=== PATIENT | male | born 1985 | race Caucasian/White ===

== ENCOUNTER 2021-04-14 13:14 | Emergency (ER) | payer SELFPAY ==
[2021-04-14 14:27] LABS: Absolute Lymphocytes (CBC) 1.4 K/uL (0.7-4.9); Basophils % 0.9 % (0-1.3); Hematocrit 35.1 % (39.6-49.0); Lymphocytes % 20.2 % (15.3-44.8); MPV 7.1 fL (7.6-11.3); RBC Red Blood Cell Count 4.08 M/uL (4.33-5.43)
[2021-04-14 14:44] LABS: ALT/SGPT 37 U/L (12-78); AST/SGOT 28 U/L (15-37); Albumin 3.1 g/dL (3.4-5.0); Alkaline Phosphatase 92 U/L (45-117); BUN Blood Urea Nitrogen 7 mg/dL (7-18); Bicarbonate 26 mmol/L (21-32); Bilirubin Direct < 0.1 mg/dL (0-0.2); Bilirubin Total 0.2 mg/dL (0.2-1.0); Glucose Level 106 mg/dL (74-106); Lipase 75 U/L (73-393); Potassium 3.5 mmol/L (3.5-5.1); Protein, Total 6.1 g/dL (6.4-8.2); Sodium Level 141 mmol/L (136-145)
[2021-04-14] MEDS ORDERED: ONDANSETRON 4 MG/2 ML VIAL ONE (14:46)
[2021-04-14] MEDS ORDERED: NA CHLORIDE 0.9% 1,000 ML ONE (14:46)
--- NOTE | 2021-04-14 15:12 | RAD REPORT ---
EXAM DESCRIPTION: CTAbdomen Pelvis W Contrast - 04/14/2021 2:58 pm CLINICAL HISTORY: Abdominal pain. ABD PAIN COMPARISON: No comparisons TECHNIQUE: Biphasic CT imaging of the abdomen and pelvis was performed with 100 ml non-ionic IV cont rast. All CT scans are performed using dose optimization technique as appropriate and may include automated exposure control or mA/KV adjustment according to patient size. FINDINGS: The lung bases are clear. The liver, spleen, pancreas, adrenal glands and kidneys are within normal limits. No bowel obstruction, free air, free fluid or abscess. There is thickening of the small intestine loo ps throughout the abdomen. Fluid-filled small bowel loops are present. Moderate stool is present thro ughout the colon. The appendix is normal. No evidence of significant lymphadenopathy. No suspicious bony findings. IMPRESSION: Diffuse wall thickening and fluid-filled small intestine is present which probably repre sents a nonspecific small bowel enteritis.
--- NOTE | 2021-04-14 15:44 | EDPHYS ---
Physician Documentation [facility] Name: Ebenezer Gordon Age: 35 yrs Sex: Male : 1985 Arrival Date: 04/14/2021 Time: 13:16 Bed 20 Private MD: DARSHANA Physician Jason Hernandez HPI: 04/14 15:40 This 35 yrs old Male presents to ER via Ambulatory with complaints of kb Vomiting/Diarrhea. 15:40 The patient presents to the emergency department with nausea, vomiting, diarrhea, kb abdominal pain. Onset: The symptoms/episode began/occurred 1 month(s) ago. Possible causes: unknown. The symptoms are aggravated by food , The symptoms are alleviated by nothing. Associated signs and symptoms: Pertinent positives: abdominal pain, diarrhea, nausea, vomiting, Pertinent negatives: fever. Severity of symptoms: At their worst the symptoms were mild moderate in the emergency department the symptoms are unchanged. The patient has not experienced similar symptoms in the past. The patient has not recently seen a physician. Pt states he has had diarrhea for about a month. Reports nausea and bloating after eating with intermittent upper abd pain. states he was diagnosed with H pylori and completed the course of antibiotics, but is still having the symptoms. . Historical: - Allergies: 13:26 No Known Allergies; ap3 - Home Meds: 13:26 Vraylar 1.5 mg oral cap [Active]; Gas Relief (simethicone) 125 mg oral cap [Active]; ap3 Pepcid AC 20 mg Oral tab [Active]; Acid Cigarette And Filter Chief Inspector (famotidine) 20 mg oral tab [Active]; ondansetron HCl 4 mg Oral tab [Active]; - PMHx: 13:26 Hypertensive disorder; H. Pylori; Anxiety; Depressive disorder; ptsd; Bipolar disorder; ap3 - Immunization history:: Client reports having NOT received the Covid vaccine. - Social history:: Smoking status: Patient reports the use of cigarette tobacco products, smokes one-half pack cigarettes per day, patient has been clean for 3 weeks. Patient was using Methamphetamine's, and is now at [facility]. . ROS: 15:39 Constitutional: Negative for fever, chills, and weight loss. kb 15:39 Abdomen/GI: Positive for abdominal pain, nausea, vomiting, and diarrhea. 15:39 All other systems are negative. Exam: 15:39 Constitutional: This is a well developed, well nourished patient who is awake, alert, kb and in no acute distress. Head/Face: Normocephalic, atraumatic. ENT: Moist Mucous membranes Respiratory: Respirations even and unlabored. No increased work of breathing, no retractions or nasal flaring. Abdomen/GI: Soft, non-tender. No distention Skin: Warm, dry with normal turgor. Normal color. MS/ Extremity: Pulses equal, no cyanosis. Neurovascular intact. Full, normal range of motion. Neuro: Awake and alert, GCS 15, oriented to person, place, time, and situation. Moves all extremities. Normal gait. Psych: Awake, alert, with orientation to person, place and time. Behavior, mood, and affect are within normal limits. Vital Signs: 13:22 BP 126 / 106; Pulse 91; Resp 23; Temp 98.7(TE); Pulse Ox 100% on R/A; Weight 63.5 kg; ap3 Height 5 ft. 9 in. (175.26 cm); 13:30 BP 138 / 81; ap3 16:49 BP 140 / 101; Pulse 68; Resp 16; Pulse Ox 98% ; tc5 13:22 Body Mass Index 20.67 (63.50 kg, 175.26 cm) ap3 MDM: 13:40 Patient medically screened. kb 15:39 Data reviewed: vital signs, nurses notes. Data interpreted: Pulse oximetry: on room air kb is 100 %. Interpretation: normal. Counseling: I had a detailed discussion with the patient and/or guardian regarding: the historical points, exam findings, and any diagnostic results supporting the discharge/admit diagnosis, lab results, radiology results, the need for outpatient follow up, a family practitioner, to return to the emergency department if symptoms worsen or persist or if there are any questions or concerns that arise at home. 04/14 13:40 Order name: Basic Metabolic Panel; Complete Time: 14:58 kb 04/14 13:40 Order name: CBC with Diff; Complete Time: 14:29 kb 04/14 13:40 Order name: Hepatic Function; Complete Time: 14:58 kb 04/14 13:40 Order name: Lipase; Complete Time: 14:58 kb 04/14 14:05 Order name: Stool Culture kb 04/14 13:40 Order name: IV Saline Lock; Complete Time: 14:17 kb 04/14 13:40 Order name: Labs collected and sent; Complete Time: 14:17 kb 04/14 14:30 Order name: CT Abd/Pelvis - IV Contrast Only; Complete Time: 15:25 kb Administered Medications: 14:30 Drug: Zofran (Ondansetron) 4 mg Route: IVP; Site: right antecubital; tc5 16:48 Follow up: Response: No adverse reaction tc5 14:31 Drug: NS 0.9% 1000 ml Route: IV; Rate: 1000 ml; Site: right antecubital; tc5 16:48 Follow up: IV Status: Completed infusion; IV Intake: 1000ml tc5 16:36 Drug: Bentyl (dicyclomine) 20 mg Route: PO; tc5 16:48 Follow up: Response: No adverse reaction tc5 16:36 Drug: Cipro (ciprofloxacin) 500 mg Route: PO; tc5 16:48 Follow up: Response: No adverse reaction tc5 16:36 Drug: Flagyl (metroNIDAZOLE) 500 mg Route: PO; tc5 16:47 Follow up: Response: No adverse reaction tc5 Disposition: 04/15 13:02 Co-signature as Attending Physician, Jason Hernandez MD I agree with the assessment and bridgette plan of care. Disposition Summary: 04/14/21 15:43 Discharge Ordered Location: Home Condition: Stable kb Diagnosis - Small Bowel Enteritis kb Followup: kb - With: Emergency Department - When: As needed - Reason: Worsening of condition Followup: kb - With: Private Physician - When: 2 - 3 days - Reason: Recheck today's complaints, Continuance of care, Re-evaluation by your physician Discharge Instructions: - Discharge Summary Sheet kb - Viral Gastroenteritis, Adult, [id number] kb Forms: - Medication Reconciliation Form kb - Thank You Letter kb - Antibiotic Education kb - Prescription Opioid Use kb Prescriptions: - Cipro 500 mg Oral Tablet - take 1 tablet by ORAL route every 12 hours for 10 days; 20 tablet; Refills: 0, kb Product Selection Permitted - Flagyl 500 mg Oral Tablet - take 1 tablet by ORAL route every 8 hours for 10 days; 30 tablet; Refills: 0, kb Product Selection Permitted - Zofran 4 mg Oral Tablet - take 1 tablet by ORAL route every 6 hours As needed; 20 tablet; Refills: 0, kb Product Selection Permitted - dicyclomine 20 mg Oral Tablet - take 1 tablet by ORAL route 4 times per day As needed; 20 tablet; Refills: 0, kb Product Selection Permitted Signatures: Dispatcher [employer] Kelin Rios, PROCESSING SPEC-C PROCESSING SPEC-Andrewb Jason Hernandez MD MD cha Prokisch, Amanda RN RN ap3 Echo Foster, RN RN tc5
--- NOTE | 2021-04-14 15:44 | ER ---
Nurse's Notes [facility] Name: Ebenezer Gordon Age: 35 yrs Sex: Male : 1985 Arrival Date: 04/14/2021 Time: 13:16 Bed 20 Private MD: Diagnosis: Small Bowel Enteritis Presentation: 04/14 13:22 Chief complaint: Patient states: he has had abdominal pain, and felt like the has been ap3 burping the taste of eggs. He states that he has been dx with H.Pilori a few weeks ago. He states that he had lunch today, but hasn't been able to hold anything down. He states he has had Diarrhea for a month. Coronavirus screen: At this time, the client does not indicate any symptoms associated with coronavirus-19. Ebola Screen: No symptoms or risks identified at this time. Initial Sepsis Screen: Does the patient meet any 2 criteria? No. Patient's initial sepsis screen is negative. Does the patient have a suspected source of infection? No. Patient's initial sepsis screen is negative. Risk Assessment: Do you want to hurt yourself or someone else? Patient reports no desire to harm self or others. Onset of symptoms is unknown. 13:22 Method Of Arrival: Ambulatory ap3 13:22 Acuity: ISABELL 3 ap3 Triage Assessment: 13:29 General: Appears distressed, Behavior is cooperative, anxious, crying. Pain: Complains ap3 of pain in abdomen Pain currently is 10 out of 10 on a pain scale. Is intermittent. GI: Reports bloating, diarrhea. Historical: - Allergies: 13:26 No Known Allergies; ap3 - Home Meds: 13:26 Vraylar 1.5 mg oral cap [Active]; Gas Relief (simethicone) 125 mg oral cap [Active]; ap3 Pepcid AC 20 mg Oral tab [Active]; Acid Software Configuration Specialist (famotidine) 20 mg oral tab [Active]; ondansetron HCl 4 mg Oral tab [Active]; - PMHx: 13:26 Hypertensive disorder; H. Pylori; Anxiety; Depressive disorder; ptsd; Bipolar disorder; ap3 - Immunization history:: Client reports having NOT received the Covid vaccine. - Social history:: Smoking status: Patient reports the use of cigarette tobacco products, smokes one-half pack cigarettes per day, patient has been clean for 3 weeks. Patient was using Methamphetamine's, and is now at [facility]. . Screenin:10 Abuse screen: Denies threats or abuse. Denies injuries from another. Nutritional tc5 screening: No deficits noted. Tuberculosis screening: No symptoms or risk factors identified. Fall Risk None identified. Assessment: 14:08 GI: Reports lower abdominal pain, upper abdominal pain, bloating, diarrhea, nausea, tc5 vomiting, and sulfer burp x 1 months, pt states he has lost 15 pounds in the last month. 16:46 GI: Abdomen is flat, non-distended. tc5 Vital Signs: 13:22 BP 126 / 106; Pulse 91; Resp 23; Temp 98.7(TE); Pulse Ox 100% on R/A; Weight 63.5 kg; ap3 Height 5 ft. 9 in. (175.26 cm); 13:30 BP 138 / 81; ap3 16:49 BP 140 / 101; Pulse 68; Resp 16; Pulse Ox 98% ; tc5 13:22 Body Mass Index 20.67 (63.50 kg, 175.26 cm) ap3 ED Course: 13:16 Patient arrived in ED. rg4 13:26 Triage completed. ap3 13:40 Kelin Talavera FNP-C [facility]. kb 13:40 Jason Hernandez MD is Attending Physician. kb 14:08 Echo Foster, DOMO is Primary Nurse. tc5 14:31 Inserted saline lock: 20 gauge in right antecubital area, using aseptic technique. tc5 Blood collected. 14:58 CT Abd/Pelvis - IV Contrast Only In Process Unspecified. EDMS 16:46 IV discontinued, intact, bleeding controlled, No redness/swelling at site. Pressure tc5 dressing applied. 16:46 No provider procedures requiring assistance completed. tc5 16:46 Arm band placed on right wrist. tc5 16:47 Patient has correct armband on for positive identification. Call light in reach. tc5 Administered Medications: 14:30 Drug: Zofran (Ondansetron) 4 mg Route: IVP; Site: right antecubital; tc5 16:48 Follow up: Response: No adverse reaction tc5 14:31 Drug: NS 0.9% 1000 ml Route: IV; Rate: 1000 ml; Site: right antecubital; tc5 16:48 Follow up: IV Status: Completed infusion; IV Intake: 1000ml tc5 16:36 Drug: Bentyl (dicyclomine) 20 mg Route: PO; tc5 16:48 Follow up: Response: No adverse reaction tc5 16:36 Drug: Cipro (ciprofloxacin) 500 mg Route: PO; tc5 16:48 Follow up: Response: No adverse reaction tc5 16:36 Drug: Flagyl (metroNIDAZOLE) 500 mg Route: PO; tc5 16:47 Follow up: Response: No adverse reaction tc5 Intake: 16:48 IV: 1000ml; Total: 1000ml. tc5 Outcome: 15:43 Discharge ordered by MD. posada 16:47 Discharged to home ambulatory. tc5 16:47 Condition: stable 16:47 Discharge instructions given to patient. 16:51 Patient left the ED. tc5 Signatures: Dispatcher [employer] EDKelin Quinones, YOANDY GIL-Lisa Wesley rg4 Sanjuanita Marcial RN RN ap3 Echo Foster RN RN tc5
[2021-04-14] MEDS ORDERED: DICYCLOMINE HCL 10 MG CAP ONE (16:55)
[2021-04-14] MEDS ORDERED: CIPROFLOXACIN HCL 500 MG TAB ONE (16:55)
[2021-04-14] MEDS ORDERED: metroNIDAZOLE 500 MG TABLET ONE (16:55)
[2021-04-14 17:05] VITALS: TEMP 98.7
[2021-04-14 17:07] VITALS: BP 140/101; O2SAT 98
== END 2021-04-14 16:51 | disposition home or self-care (01) ==
LOC: ER 13:14
DX: K52.9 Noninfective gastroenteritis and colitis, unspecified (principal); I10 Essential (primary) hypertension; F32.A Depression, unspecified; F17.210 Nicotine dependence, cigarettes, uncomplicated
CPT/HCPCS: 36415; 74177; 80048; 80076; 83690; 85025; 96361; 96374; 99284; J2405; J7030; Q9967